=== PATIENT | female | born 1960 | race Caucasian/White ===

== ENCOUNTER 2022-01-07 17:22 | Emergency (ER) | payer OTHER ==
[~2022-01-07] VITALS: Ht 165.1 cm; Wt 94.0 kg
[2022-01-07] MEDS ORDERED: HYDROCODONE/ACETAMINOPHEN 5/325MG TABLET PO STA (17:58)
[2022-01-07] MEDS ORDERED: KETOROLAC 30MG/ML VIAL IM STA (17:58)
[2022-01-07 19:51] LABS: BASOPHILS % 0.4 % (0.0-2.0); EOSINOPHILS % 1.6 % (0.0-5.0); HEMATOCRIT. 36.8 % (36.0-48.0); HEMOGLOBIN. 12.3 g/dL (12.0-16.0); LYMPHOCYTES % 17.6 % (20.0-50.0); MEAN CORPUSCULAR VOLUME 92.6 fL (81.0-99.0); MEAN PLATELET VOLUME 8.7 fl (7.4-10.4); MONOCYTES % 9.8 % (2.0-8.0); NEUTROPHILS % 70.6 % (40.0-76.0); PLATELET 221 x1000/uL (130-400); RED BLOOD CELL COUNT 3.98 mill/uL (4.2-5.4); RED CELL DISTRIBUTION WIDTH 15.7 % (11.6-14.6)
[2022-01-07 19:56] LABS: CHLORIDE 108 mEq/L (98-107)
[2022-01-07] MEDS ORDERED: HYDROCODONE/ACETAMINOPHEN 5/325MG TABLET PO NR (21:30)
[2022-01-07] MEDS ORDERED: KETOROLAC 30MG/ML VIAL IM NR (21:30)
[2022-01-07 21:55] LABS: CLARITY URINE CLOUDY (CLEAR); COLOR URINE DARK YELLOW (YELLOW); KETONES URINE TRACE (NEGATIVE); LEUKOCYTE ESTERASE URINE TRACE (NEGATIVE); NITRITE URINE NEGATIVE (NEGATIVE); OCCULT BLOOD URINE TRACE (NEGATIVE); PROTEIN URINE TRACE (NEGATIVE); SPECIFIC GRAVITY URINE 1.032 (1.005-1.030)
[2022-01-07] MEDS ORDERED: TAMSULOSIN HCL 0.4MG SR CAPSULE PO NR (23:00)
[2022-01-08] MEDS ORDERED: CEPH500C2 MT (00:33)
[2022-01-08] MEDS ORDERED: TAMS-11 MT (00:33)
[2022-01-08] MEDS ORDERED: IBUP-2029 MT (00:33)
[2022-01-08 00:48] VITALS: BP 138/82
== END 2022-01-08 00:51 | disposition home or self-care (01) ==
LOC: ER 17:22
DX: N13.30 Unspecified hydronephrosis (principal); E11.9 Type 2 diabetes mellitus without complications
CPT/HCPCS: 36415; 74176; 80053; 81003; 83690; 85025; 96372; 99284; J1885